=== PATIENT | female | born 1955 | race Caucasian/White ===

== ENCOUNTER → 2018-08-15 | Outpatient (CLI) | payer BC | LOC: MAMMO 11:12 | PROVIDERS: ATTEND Internal Medicine | DX: Z12.31 Encounter for screening mammogram for malignant neoplasm of breast (principal) | CPT/HCPCS: 77067 ==

== ENCOUNTER → 2018-09-12 | Outpatient (CLI) | payer BC ==
--- NOTE | 2018-09-15 08:29 | Diagnostic Imaging Report ---
#[id number] - MGDXRT #UNILATERAL RIGHT DIGITAL DIAGNOSTIC MAMMOGRAM WITH SPOT COMPRESSION AND MAGNIFICATION: 09/12/2018 Comparison is made to exams dated: 08/15/2018 mammogram and 12/10/2014 mammogram - [facility]. The study dated 11/07/2016 is not currently available for review due to PACS retrieval issues. The tissue of the right breast is heterogeneously dense. This may lower the sensitivity of mammography. The amorphous calcification in the right breast 1 o'clock position are indeterminate but new compared to 2014 study. Uncertain without film review if they were present on the 2016 study. No significant masses, calcifications, or other findings are seen in the breast. IMPRESSION: PROBABLY BENIGN A follow-up mammogram in 6 months is recommended to demonstrate stability. The patient was notified of the plan for followup. Luis Carlos Dean Jr., D.O. cw/:09/12/2018 16:25:43 Ultrasound Supervisor: Nella REES(Debora)(Shruthi), [facility] letter sent: Followup Recommended Mammogram BI-RADS: 3 Probably benign
== END ==
LOC: MAMMO 14:51
PROVIDERS: ATTEND Internal Medicine
DX: N64.59 Other signs and symptoms in breast (principal)

== ENCOUNTER → 2019-03-18 | Outpatient (CLI) | payer BC ==
--- NOTE | 2019-03-19 08:46 | Diagnostic Imaging Report ---
#[id number] - USBRECOMRT ULTRASOUND OF THE RIGHT BREAST : 03/18/2019 Comparison is made to exams dated: 03/18/2019 mammogram, 09/12/2018 mammogram and 08/15/2018 mammogram - [facility]. Color flow and real-time ultrasound were performed on the entire right breast with scanning in all four quadrants, retroareolar region and the right axilla. There is a wider than tall irregular mass measuring 1.5 x 1.0 x 1.9 cm in the right breast at 12 o'clock anterior depth. Associated calcifications within the mass. No abnormal axillary lymphadenopathy seen. IMPRESSION: HIGHLY SUGGESTIVE OF MALIGNANCY The wider than tall irregular mass in the right breast is highly suggestive of malignancy. An ultrasound guided biopsy is recommended. A phone call was made to the physician's office and the case discussed with Dr. Romo. Luis Carlos Dean Jr., D.O. cw/:03/18/2019 17:23:52 Peanut Shaker: Shawna Dunn [facility], [facility] letter sent: Biopsy Required Ultrasound BI-RADS: 5 Highly suggestive of malignancy
--- NOTE | 2019-03-19 08:46 | Diagnostic Imaging Report ---
#[id number] - MGDXRT #UNILATERAL RIGHT DIGITAL DIAGNOSTIC MAMMOGRAM WITH CAD: 03/18/2019 Comparison is made to exams dated: 09/12/2018 mammogram, 08/15/2018 mammogram and 11/07/2016 mammogram - [facility]. Current study contains 5 films. The tissue of the right breast is heterogeneously dense. This may lower the sensitivity of mammography. Current study was also evaluated with a Computer Aided Detection (CAD) system. There is a palpable mass marker and an associated 1.2 cm mass in the right breast at 12 o'clock. There is some associated calcifications with this mass and scattered calcifications elsewhere in the right breast. No other significant masses or calcifications are seen in the breast. IMPRESSION: HIGHLY SUGGESTIVE OF MALIGNANCY The 1.2 cm mass in the right breast is highly suspicious and a biopsy is necessary. Follow-up with ACR/ACS guidelines. A phone call was made to the physician and the case discussed with Dr. Romo. The patient and her were informed of these findings and the need for biopsy. Luis Carlos Dean Jr., D.O. cw/:03/18/2019 17:17:27 Bull Gang Supervisor: Nella KAISRE)(Shruthi), [facility] letter sent: Biopsy Required Mammogram BI-RADS: 5 Highly suggestive of malignancy
== END ==
LOC: MAMMO 14:04
PROVIDERS: ATTEND Internal Medicine
DX: N63.10 Unspecified lump in the right breast, unspecified quadrant (principal)

== ENCOUNTER → 2019-04-01 | Outpatient (CLI) | payer BC ==
--- NOTE | 2019-04-01 13:39 | Diagnostic Imaging Report ---
#[id number] - MGDXRT #UNILATERAL RIGHT DIGITAL DIAGNOSTIC MAMMOGRAM POST-NEEDLE BIOPSY: 04/01/2019 Comparison is made to exam dated: 04/01/2019 ultrasound biopsy - [facility]. The tissue of the right breast is heterogeneously dense. This may lower the sensitivity of mammography. There is a marker clip in the appropriate position in the right breast at 12 o'clock middle depth. This marker clip placement is at biopsy site. IMPRESSION: POST PROCEDURE MAMMOGRAM FOR MARKER PLACEMENT There was a successful marker clip placement in the right breast middle depth. Follow-up with ACR/ACS guidelines. MELCHOR HUFF M.D., mc/[place]:04/01/2019 11:11:05 Gas Analyst: Nella REES(R)(M), [facility] Mammogram BI-RADS: Post-procedure mammogram for marker placement
--- NOTE | 2019-04-01 13:39 | Diagnostic Imaging Report ---
#[id number] - [id number] ULTRASOUND GUIDED BIOPSY RIGHT BREAST WITH MARKING DEVICE INSERTED AND POST DIGITAL MAMMOGRAPHIC IMAGIN04/01/2019 PATIENT CONSENT: According to [facility] requirements, a time out was performed, correct site was localized and the patient was consented. Correlation is made to exams dated: 03/18/2019 ultrasound, 03/18/2019 mammogram, 09/12/2018 mammogram and 08/15/2018 mammogram - [facility]. An ultrasound guided biopsy using real-time ultrasound was performed for the mass located in the right breast at 12 o'clock middle depth. This was described on the previous ultrasound report. The skin was prepped in the usual manner. Local anesthetic was administered to the access site. A small incision was made in the breast. The abnormality was approached from the lateral aspect. A 14 gauge biopsy needle was placed adjacent to the abnormality under ultrasound guidance. Once the needle was documented to be in the correct location, four specimens were obtained using an Achieve automated firing device. A clip was inserted into the biopsy cavity. A sterile dressing was applied to the access site. Post procedure digital mammographic imaging was obtained. The specimens were sent to the laboratory for pathological analysis. IMPRESSION: ULTRASOUND GUIDED BIOPSY Ultrasound guided biopsy of the mass in the right breast at 12 o'clock middle depth was successful with no apparent post procedure complications. Waiting for pathology results. A final report will be issued when these become available. MELCHOR HUFF M.D., mc/[place]:04/01/2019 11:10:45 Pencil Maker: RICHI RAINES [facility], [place], [facility] [id number]
== END ==
LOC: US 08:55
PROVIDERS: ATTEND Internal Medicine
DX: N63.12 Unspecified lump in the right breast, upper inner quadrant (principal)
CPT/HCPCS: 88305

== ENCOUNTER → 2019-12-31 | Outpatient (CLI) | payer BC | LOC: MAMMO 14:17 | PROVIDERS: ATTEND Internal Medicine | DX: C50.919 Malignant neoplasm of unspecified site of unspecified female breast (principal) | CPT/HCPCS: 77066 ==

== ENCOUNTER → 2021-02-09 | Outpatient (CLI) | payer MEDICARE, OTHER | LOC: MAMMO 12:11 | PROVIDERS: ATTEND Internal Medicine | DX: R92.2 Inconclusive mammogram (principal) | CPT/HCPCS: 77066 ==